=== PATIENT | female | born 1985 | race Two or more races ===

== ENCOUNTER 2016-11-25 19:21 | Emergency (ER) | payer MEDICAID, OTHER ==
[2016-11-25] MEDS ORDERED: PROPARACAINE HCL 0.5% 300 GTTS/BOT SOLN.DROP ONE (19:47)
[2016-11-25] MEDS ORDERED: LACTATED RINGERS 1,000 ML ONE (20:13)
== END 2016-11-25 21:07 | disposition home or self-care (01) ==
LOC: ED 19:21
DX: S05.02XA Injury of conjunctiva and corneal abrasion without foreign body, left eye, initial encounter (principal); X02.8XXA Other exposure to controlled fire in building or structure, initial encounter; Y92.009 Unspecified place in unspecified non-institutional (private) residence as the place of occurrence of the external cause
CPT/HCPCS: 99283; 99282; A9270; J7120